=== PATIENT | male | born 1960 | race African-American/Black ===

== ENCOUNTER 2017-06-23 00:28 | Emergency (ER) | payer SELFPAY ==
[~2017-06-23] VITALS: Ht 180.3 cm; Wt 68.2 kg
[2017-06-23] MEDS ORDERED: ACETAMINOPHEN 500 MG TABLET PO ONE (01:00)
[2017-06-23 01:19] LABS: INFLUENZA TYPE A NEGATIVE FOR TYPE A (NEGATIVE); INFLUENZA TYPE B NEGATIVE FOR TYPE B (NEGATIVE)
[2017-06-23 01:23] LABS: EOSINOPHILS # (AUTO) 0.11 K/uL (0.00-0.70); EOSINOPHILS % (AUTO) 1.08 % (1.0-6.0); HEMATOCRIT 31.4 % (41-53); HEMOGLOBIN 10.4 g/dL (13.5-17.5); LYMPHOCYTES % (AUTO) 9.2 % (22.0-44.0); MEAN CORPUSCULAR HEMOGLOBIN 28.5 pg (26.0-34.0); MEAN CORPUSCULAR HGB CONC 33.1 G/dL (31.0-37.0); MEAN CORPUSCULAR VOLUME 86 fL (80-100); MONOCYTES # (AUTO) 0.8 K/uL (0.1-1.0); NEUTROPHILS # (AUTO) 8.4 K/uL (1.8-7.7); NEUTROPHILS % (AUTO) 81.7 % (40.0-70.0); PLATELET COUNT (AUTO) 303 K/uL (150-450); RED BLOOD CELL COUNT(AUTO) 3.65 MIL/uL (4.50-5.90); RED CELL DISTRIBUTION WIDTH 16.9 % (11.5-14.5)
[2017-06-23] MEDS ORDERED: KETOROLAC TROMETHAMINE 30 MG/ML VIAL IM ONE (01:30)
[2017-06-23 01:31] LABS: CALCIUM, TOTAL 8.8 mg/dL (8.8-10.5); CREATININE 1.57 mg/dL (0.60-1.30); POTASSIUM 4.4 mmol/L (3.5-5.1)
[2017-06-23 01:37] LABS: BILIRUBIN,TOTAL 0.7 mg/dL (0.1-1.0); TOTAL PROTEIN, SERUM 7.6 g/dL (6.4-8.2)
[2017-06-23] MEDS ORDERED: AZITHROMYCIN 250 MG TABLET PO ONE (02:00)
[2017-06-23 02:08] VITALS: BP 117/72
== END 2017-06-23 02:34 | disposition home or self-care (01) ==
LOC: EMS 00:30 → EDBD 00:30 → EMS 02:34
DX: J18.9 Pneumonia, unspecified organism (principal); R79.89 Other specified abnormal findings of blood chemistry
CPT/HCPCS: 36415; 71045; 80053; 85025; 87804; 96372; 99285; J1885